=== PATIENT | male | born 1980 | race African-American/Black ===

== ENCOUNTER 2016-07-21 10:36 | Emergency (ER) | payer SELFPAY ==
[~2016-07-21] VITALS: Ht 185.4 cm; Wt 75.0 kg
[~2016-07-21 10:36] MED LIST: BACT800T5 PO; IBUP800T23 PO
[2016-07-21 10:37] VITALS: BP 131/65; PULSE 82; RESP 17; TEMP 97.8; O2SAT 98
--- NOTE | 2016-07-21 11:27 | PD ---
HPI Chief Complaint: GI Complaint Time Seen by Provider: 11:17 Travel History International Travel<30 days: No Contact w/Intl Traveler<30days: No Traveled to known affect area: No History of Present Illness HPI Healthy 36-year-old male with history of gastritis who here with complaint of nausea vomiting diarrhea and abdominal discomfort since waking this morning. Patient states that he ate [employer] last night before bed. This morning he woke up with a burning sensation within the epigastrium. Intractable nausea, vomiting and some diarrhea. Abdominal pain is mild. No hematemesis or hematochezia. PFSH Past Medical History Anxiety: No Depression: No Cancer: No Cardiovascular Problems: No Diminished Hearing: No Endocrine: No Gastrointestinal Disorders: Yes (GASTRITIS) GERD: Yes Genitourinary: No Hiatal Hernia: No Immune Disorder: No Musculoskeletal: No Neurologic: No Psychiatric: No Reproductive: No Respiratory: No Immunizations Current: No Ulcer: No Past Surgical History Pacemaker: No Other Surgery: No (LACERATION AND REPAIR TO UPPER LIP ) Social History Alcohol Use: No Tobacco Use: Yes Substance Use: Yes (marijuana) Allergies-Medications (Allergen,Severity, Reaction): Coded Allergies: No Known Allergies (Verified , 07/21/16) Reported Meds & Prescriptions Reported Meds & Active Scripts Active No Active Prescriptions or Reported Medications Review of Systems Except as stated in HPI: all other systems reviewed are Neg Physical Exam Narrative GENERAL: Well-appearing male vomiting SKIN: Warm and dry. HEAD: Normocephalic. EYES: No scleral icterus. No injection or drainage. ENT: No nasal bleeding or discharge. Mucous membranes pink and moist. NECK: Supple CARDIOVASCULAR: Regular rate and rhythm. RESPIRATORY: No accessory muscle use. GASTROINTESTINAL: Abdomen soft, minimal epigastric discomfort without rebound or guarding, nondistended. No CVA tenderness. MUSCULOSKELETAL: Normal gait NEUROLOGICAL: Awake and alert. Normal speech. PSYCHIATRIC: Appropriate mood and affect; insight and judgment normal. Data Data Last Documented VS Vital Signs Date Time Temp Pulse Resp B/P Pulse Ox O2 Delivery O2 Flow Rate FiO2 07/21/16 11:20 18 07/21/16 10:37 97.8 82 131/65 98 Orders Complete Blood Count With Diff (07/21/16 11:21) Comprehensive Metabolic Panel (07/21/16 11:21) Lipase (07/21/16 11:21) Iv Access Insert/Monitor (07/21/16 11:21) Ondansetron Inj (Zofran Inj) (07/21/16 11:30) Sodium Chloride 0.9% Flush (Ns Flush) (07/21/16 11:30) Diphenhydramine Inj (Benadryl Inj) (07/21/16 11:30) Metoclopramide Inj (Reglan Inj) (07/21/16 11:30) Sodium Chlor 0.9% 1000 Ml Inj (Ns 1000 M (07/21/16 12:15) Labs Laboratory Tests Test 07/21/16 11:35 White Blood Count 5.5 TH/MM3 Red Blood Count 4.63 MIL/MM3 Hemoglobin 14.5 GM/DL Hematocrit 43.2 % Mean Corpuscular Volume 93.3 FL Mean Corpuscular Hemoglobin 31.3 PG Mean Corpuscular Hemoglobin 33.5 % Concent Red Cell Distribution Width 12.9 % Platelet Count 147 TH/MM3 Mean Platelet Volume 10.9 FL Neutrophils (%) (Auto) 69.7 % Lymphocytes (%) (Auto) 20.8 % Monocytes (%) (Auto) 7.3 % Eosinophils (%) (Auto) 1.6 % Basophils (%) (Auto) 0.6 % Neutrophils # (Auto) 3.9 TH/MM3 Lymphocytes # (Auto) 1.2 TH/MM3 Monocytes # (Auto) 0.4 TH/MM3 Eosinophils # (Auto) 0.1 TH/MM3 Basophils # (Auto) 0.0 TH/MM3 CBC Comment DIFF FINAL Differential Comment Sodium Level 142 MEQ/L Potassium Level 4.2 MEQ/L Chloride Level 109 MEQ/L Carbon Dioxide Level 25.2 MEQ/L Anion Gap 8 MEQ/L Blood Urea Nitrogen 8 MG/DL Creatinine 1.03 MG/DL Estimat Glomerular Filtration 100 ML/MIN Rate Random Glucose 97 MG/DL Calcium Level 8.8 MG/DL Total Bilirubin 0.4 MG/DL Aspartate Amino Transf 32 U/L (AST/SGOT) Alanine Aminotransferase 31 U/L (ALT/SGPT) Alkaline Phosphatase 39 U/L Total Protein 7.6 GM/DL Albumin 4.0 GM/DL Lipase 94 U/L MDM Medical Decision Making Medical Screen Exam Complete: Yes Emergency Medical Condition: Yes Medical Record Reviewed: Yes Differential Diagnosis Healthy 36-year-old male with history of gastritis here with complaint of nausea vomiting diarrhea and burning epigastric discomfort since eating [facility] last night. Differential includes gastritis, pancreatitis, gastroenteritis, food poisoning, hepatobiliary pathology, peptic ulcer disease and less likely peritoneal pathology given her overall benign abdominal examination. Narrative Course IV established and blood obtained. Patient given Toradol, Zofran, Benadryl/ Reglan. CBC, CMP, lipase unremarkable. Patient felt improved and was able to tolerate oral challenge and will be discharged home. Diagnosis Primary Impression: Gastritis Qualified Code: K29.00 - Acute gastritis without hemorrhage, unspecified gastritis type Referrals: Primary Care Physician as needed Patient Instructions: Diet for Stomach Ulcers and Gastritis (ED), Gastritis (ED ), General Instructions Additional Instructions: Phenergan as needed for nausea, vomiting. Omeprazole as prescribed for antacid. Med/Other Pt SpecificInfo: Prescription(s) given Scripts Promethazine (Phenergan)25 Mg Tab25 Mg PO Q6H PRN (Nausea/Vomiting) #10 TAB Ref 0 Prov:Karol Quinn MD 07/21/16 Omeprazole 40 Mg Cap40 Mg PO DAILY #30 CAP Ref 0 Prov:Karol Quinn MD 07/21/16 Disposition: 01 DISCHARGE HOME Condition: Stable Karol Quinn MD Jul 21, 2016 11:26
[2016-07-21] MEDS ORDERED: diphenhydrAMINE HCL 50 MG/ML VIAL IVP ONE (11:30)
[2016-07-21] MEDS ORDERED: METOCLOPRAMIDE HCL 10 MG/2 ML VIAL IVP ONE (11:30)
[2016-07-21] MEDS ORDERED: SODIUM CHLORIDE 0.9% FLUSH 10 ML FLUSH IV FLUSH PRN (11:30)
[2016-07-21] MEDS ORDERED: ONDANSETRON HCL 4 MG/2 ML VIAL IVP ONE (11:30)
[2016-07-21 12:03] LABS: AUTOMATED NEUTROPHIL # 3.9 TH/MM3 (1.8-7.7); BASOPHIL % 0.6 % (0.0-2.0); EOSINOPHIL # 0.1 TH/MM3 (0-0.4); EOSINOPHIL % 1.6 % (0.0-4.0); HEMATOCRIT 43.2 % (39.0-51.0); HEMO FLAGS DIFF FINAL; LYMPH % 20.8 % (9.0-44.0); LYMPHOCYTE # 1.2 TH/MM3 (1.0-4.8); MEAN CELL VOLUME 93.3 FL (80.0-100.0); MEAN CORPUSCULAR HEMOGLOBIN 31.3 PG (27.0-34.0); MEAN CORPUSCULAR HGB CONC 33.5 % (32.0-36.0); MONO % 7.3 % (0.0-8.0); NEUT % 69.7 % (16.0-70.0); PLATELET COUNT 147 TH/MM3 (150-450); RED BLOOD COUNT 4.63 MIL/MM3 (4.50-5.90); RED CELL DISTRIBUTION WIDTH 12.9 % (11.6-17.2); WHITE BLOOD COUNT 5.5 TH/MM3 (4.0-11.0)
[2016-07-21] MEDS ORDERED: SODIUM CHLOR 0.9% 1000 ML INJ 1,000 ML IV ONE (12:15)
[2016-07-21 12:32] LABS: ALKALINE PHOSPHATASE 39 U/L (45-117); ALT (GPT) 31 U/L (12-78); ANION GAP 8 MEQ/L (5-15); AST (GOT) 32 U/L (15-37); BICARBONATE 25.2 MEQ/L (21.0-32.0); BLOOD UREA NITROGEN 8 MG/DL (7-18); CHLORIDE 109 MEQ/L (98-107); GLOMERULAR FILTRATION RATE 100 ML/MIN (>89); SODIUM (NA) 142 MEQ/L (136-145); TOTAL BILIRUBIN ADULT 0.4 MG/DL (0.2-1.0)
[2016-07-21 12:35] LABS: POTASSIUM 4.2 MEQ/L (3.5-5.1)
[2016-07-21] MEDS ORDERED: OMEP40CA2 PO (12:43)
[2016-07-21] MEDS ORDERED: PROM25TA5 PO (12:43)
[2016-07-21] MEDS ORDERED: ONDANSETRON HCL 4 MG/2 ML VIAL IV PUSH ONE (13:00)
[2016-07-21] MEDS ORDERED: PROCHLORPERAZINE INJ 10 MG/2 ML VIAL IVS ONE (13:00)
== END 2016-07-21 13:29 | disposition home or self-care (01) ==
LOC: NEPB 10:36
DX: K29.70 Gastritis, unspecified, without bleeding (principal); R19.7 Diarrhea, unspecified; R10.9 Unspecified abdominal pain; F12.90 Cannabis use, unspecified, uncomplicated; Z72.0 Tobacco use
CPT/HCPCS: 80053; 83690; 85025; 96361; 96374; 96375; 96376; 99284; J0780; J1200; J2405; J2765; J7030

== ENCOUNTER 2016-07-26 09:09 | Emergency (ER) | payer SELFPAY ==
[~2016-07-26] VITALS: Ht 185.4 cm; Wt 80.0 kg
[~2016-07-26 09:09] MED LIST changes: -BACT800T5 PO; -IBUP800T23 PO; +OMEP40CA2 PO; +PROM25TA5 PO
[2016-07-26 09:10] VITALS: BP 134/72; PULSE 104; RESP 20; TEMP 98.1; O2SAT 100
[2016-07-26] MEDS ORDERED: ZOFR4TAB3 SL (09:31)
[2016-07-26] MEDS ORDERED: PRIL20CA9 PO (09:32)
--- NOTE | 2016-07-26 09:35 | PD ---
HPI Chief Complaint: GI Complaint Time Seen by Provider: 09:28 Travel History International Travel<30 days: No Contact w/Intl Traveler<30days: No Traveled to known affect area: No History of Present Illness HPI 36-year-old male came to the emergency room with history of nausea and vomiting for past 4 days. Patient was in the emergency room about 3-4 days ago here with these complaints. He was given IV fluids and discharged home on prescription medication. Patient says that because of the vomiting he has been unable to keep the medications down. He was seen in [facility] in [place] for the same complain and was discharged home with a prescription for suppository antiemetics. Patient says that those were very expensive and he was unable to fill them all. He is back here because he feels weak and dehydrated. This morning when he got out of the bed he was very dizzy and almost fell. Currently he is awake and answering questions appropriately. He was slightly tachycardic in triage. Patient says he had something similar about 2 years ago and was diagnosed with gastritis. He had endoscopy done at that time. He was supposed to follow-up with GI specialist but since he does not have insurance he did not follow-up. He took the prescribed medications only for 10 days. He used to drink alcohol but he has given up drinking for many months now. [facility] Past Medical History Narrative Medical List of his past course, social family history as reviewed from the nursing note. Anxiety: No Depression: No Cancer: No Cardiovascular Problems: No Diminished Hearing: No Endocrine: No Gastrointestinal Disorders: Yes (GASTRITIS) GERD: Yes Genitourinary: No Hiatal Hernia: No Immune Disorder: No Musculoskeletal: No Neurologic: No Psychiatric: No Reproductive: No Respiratory: No Immunizations Current: No Ulcer: No Past Surgical History Surgical History: No Previous Surgery Pacemaker: No Other Surgery: No (LACERATION AND REPAIR TO UPPER LIP ) Social History Alcohol Use: Yes (SOCIALLY) Tobacco Use: Yes Substance Use: Yes (marijuana) Allergies-Medications (Allergen,Severity, Reaction): Coded Allergies: No Known Allergies (Verified , 07/26/16) Comments No known drug allergies. Reported Meds & Prescriptions Reported Meds & Active Scripts Active Pantoprazole (Pantoprazole Sodium) 40 Mg Tab 40 Mg PO DAILY Phenergan (Promethazine HCl) 25 Mg Tab 25 Mg PO Q6H PRN Reported Prilosec (Omeprazole) 20 Mg Cap 20 Mg PO DAILY Zofran Odt (Ondansetron Odt) 4 Mg Tab 4 Mg SL Q12HR PRN Narrative Medication List of his home medications reviewed from the nursing note. Review of Systems Except as stated in HPI: all other systems reviewed are Neg Physical Exam Narrative GENERAL: Awake, alert, mild distress SKIN: Warm and dry. HEAD: Atraumatic. Normocephalic. EYES: Pupils equal and round. No scleral icterus. No injection or drainage. ENT: No nasal bleeding or discharge. Mucous membranes pink and moist. NECK: Trachea midline. No JVD. CARDIOVASCULAR: Regular rate and rhythm. No murmur appreciated. RESPIRATORY: No accessory muscle use. Clear to auscultation. Breath sounds equal bilaterally. GASTROINTESTINAL: Abdomen soft, non-tender, nondistended. Hepatic and splenic margins not palpable. MUSCULOSKELETAL: No obvious deformities. No clubbing. No cyanosis. No edema. NEUROLOGICAL: Awake and alert. No obvious cranial nerve deficits. Motor grossly within normal limits. Normal speech. PSYCHIATRIC: Appropriate mood and affect; insight and judgment normal. Data Data Last Documented VS Vital Signs Date Time Temp Pulse Resp B/P Pulse Ox O2 Delivery O2 Flow Rate FiO2 07/26/16 09:10 98.1 104 20 134/72 100 Room Air Orders Complete Blood Count With Diff (07/26/16 09:47) Basic Metabolic Panel (Bmp) (07/26/16 09:47) Pantoprazole Inj (Protonix Inj) (07/26/16 10:00) Lipase (07/26/16 09:47) Sodium Chlor 0.9% 1000 Ml Inj (Ns 1000 M (07/26/16 10:00) Ondansetron Inj (Zofran Inj) (07/26/16 10:00) Labs Laboratory Tests Test 07/26/16 10:00 White Blood Count 6.6 TH/MM3 Red Blood Count 5.21 MIL/MM3 Hemoglobin 16.7 GM/DL Hematocrit 47.6 % Mean Corpuscular Volume 91.2 FL Mean Corpuscular Hemoglobin 32.0 PG Mean Corpuscular Hemoglobin 35.1 % Concent Red Cell Distribution Width 12.6 % Platelet Count 148 TH/MM3 Mean Platelet Volume 10.5 FL Neutrophils (%) (Auto) 66.6 % Lymphocytes (%) (Auto) 21.5 % Monocytes (%) (Auto) 10.9 % Eosinophils (%) (Auto) 0.4 % Basophils (%) (Auto) 0.6 % Neutrophils # (Auto) 4.4 TH/MM3 Lymphocytes # (Auto) 1.4 TH/MM3 Monocytes # (Auto) 0.7 TH/MM3 Eosinophils # (Auto) 0.0 TH/MM3 Basophils # (Auto) 0.0 TH/MM3 CBC Comment DIFF FINAL Differential Comment Sodium Level 135 MEQ/L Potassium Level 3.5 MEQ/L Chloride Level 98 MEQ/L Carbon Dioxide Level 27.6 MEQ/L Anion Gap 9 MEQ/L Blood Urea Nitrogen 13 MG/DL Creatinine 1.08 MG/DL Estimat Glomerular Filtration 95 ML/MIN Rate Random Glucose 84 MG/DL Calcium Level 8.8 MG/DL Lipase 82 U/L MDM Medical Decision Making Medical Screen Exam Complete: Yes Emergency Medical Condition: Yes Medical Record Reviewed: Yes Differential Diagnosis Acute gastritis, intractable vomiting Narrative Course 10:58 AM patient was given IV fluid bolus and IV Zofran. Given his last endoscopy report which showed severe gastritis I gave him IV Protonix as well. Blood test results of back and are relatively within normal limits. I'm comfortable discharging him home. I explained to him the importance of continuing with the PPI. Also he has to make an appointment to follow up with the talent acquisition manager. I'll give him the name of the on-call center agent. Patient has not vomited anymore since he has been here. Procedures EKG Prior to Arrival: No Diagnosis Primary Impression: Acute gastritis Qualified Code: K29.00 - Acute gastritis without hemorrhage, unspecified gastritis type Additional Impressions: Vomiting Qualified Code: R11.2 - Non-intractable vomiting with nausea, unspecified vomiting type Dehydration Referrals: Oracio Bustamante MD 1 week Additional Instructions: Please return to the ER if the condition worsens or any other new concerns. Otherwise follow-up with your primary care. If you do not have a primary care please find one for yourselves. Follow-up with the talent acquisition manager whose name and number been given to you. Take the medications as per the prescription direction. Stay away from any food that is highly acid content like lemon, lines, oranges, tomatoes, strawberries etc and products made out of them. Med/Other Pt SpecificInfo: Prescription(s) given Scripts Pantoprazole 40 Mg Tab40 Mg PO DAILY #30 TAB Ref 0 Prov:Miguel Tucker MD 07/26/16 Disposition: 01 DISCHARGE HOME Condition: Stable Miguel Tucker MD Jul 26, 2016 09:35 Miguel Tucker MD Jul 26, 2016 09:35
[2016-07-26] MEDS ORDERED: PANTOPRAZOLE SODIUM 40 MG VIAL IV PUSH ONE (10:00)
[2016-07-26] MEDS ORDERED: SODIUM CHLOR 0.9% 1000 ML INJ 1,000 ML IV ONE (10:00)
[2016-07-26] MEDS ORDERED: ONDANSETRON HCL 4 MG/2 ML VIAL IV PUSH ONE (10:00)
[2016-07-26 10:24] LABS: AUTOMATED NEUTROPHIL # 4.4 TH/MM3 (1.8-7.7); BASOPHIL % 0.6 % (0.0-2.0); EOSINOPHIL % 0.4 % (0.0-4.0); HEMATOCRIT 47.6 % (39.0-51.0); HEMO FLAGS DIFF FINAL; LYMPH % 21.5 % (9.0-44.0); LYMPHOCYTE # 1.4 TH/MM3 (1.0-4.8); MEAN CELL VOLUME 91.2 FL (80.0-100.0); MEAN CORPUSCULAR HGB CONC 35.1 % (32.0-36.0); MONO % 10.9 % (0.0-8.0); NEUT % 66.6 % (16.0-70.0); PLATELET COUNT 148 TH/MM3 (150-450); RED BLOOD COUNT 5.21 MIL/MM3 (4.50-5.90); RED CELL DISTRIBUTION WIDTH 12.6 % (11.6-17.2); WHITE BLOOD COUNT 6.6 TH/MM3 (4.0-11.0)
[2016-07-26 10:51] LABS: BICARBONATE 27.6 MEQ/L (21.0-32.0)
[2016-07-26 10:52] LABS: POTASSIUM 3.5 MEQ/L (3.5-5.1)
[2016-07-26] MEDS ORDERED: PANT40TA3 PO (11:01)
== END 2016-07-26 13:59 | disposition home or self-care (01) ==
LOC: NEPC 09:09
DX: K29.00 Acute gastritis without bleeding (principal); R11.2 Nausea with vomiting, unspecified; E86.0 Dehydration; R53.1 Weakness; R42 Dizziness and giddiness; R00.0 Tachycardia, unspecified; Z72.0 Tobacco use; Z87.19 Personal history of other diseases of the digestive system
CPT/HCPCS: 80048; 83690; 85025; 96361; 96374; 96375; 99284; C9113; J2405; J7030

== ENCOUNTER 2016-07-28 07:52 | Emergency (ER) | payer SELFPAY ==
[~2016-07-28 07:52] MED LIST changes: -OMEP40CA2 PO; +PANT40TA3 PO; +PRIL20CA9 PO; +ZOFR4TAB3 SL
[2016-07-28 07:55] VITALS: BP 129/80; PULSE 94; RESP 24; TEMP 97.9; O2SAT 99
[2016-07-28] MEDS ORDERED: SODIUM CHLOR 0.9% 1000 ML INJ 1,000 ML IV SCH (08:24)
[2016-07-28] MEDS ORDERED: ONDANSETRON HCL 4 MG/2 ML VIAL IVP ONE (08:30)
[2016-07-28] MEDS ORDERED: MORPHINE SULFATE 4 MG/ML INJ IV PUSH ONE (08:30)
[2016-07-28] MEDS ORDERED: LIDOCAINE VISCOUS 2% SOLN 15 ML UDC PO ONE (08:30)
[2016-07-28] MEDS ORDERED: ALUMINUM/MAGNESIUM/SIMETH 30 ML CUP PO ONE (08:30)
[2016-07-28] MEDS ORDERED: FAMOTIDINE 20 MG/2 ML VIAL IV PUSH ONE (08:30)
[2016-07-28] MEDS ORDERED: SODIUM CHLORIDE 0.9% FLUSH 10 ML FLUSH IV FLUSH PRN (08:30)
--- NOTE | 2016-07-28 08:30 | PD ---
HPI Chief Complaint: Abdominal Pain Time Seen by Provider: 08:14 Travel History International Travel<30 days: No Contact w/Intl Traveler<30days: No Traveled to known affect area: No History of Present Illness HPI The patient is a 36-year-old [place] male who presents emergency department for epigastric abdominal pain. The patient states his abdominal pain started approximately 5 days ago. The pain is located in epigastrium, nonradiating, burning, and assisted with nausea, vomiting, dry heaves. Patient notes decreased oral intake over the last several days secondary to persistent epigastric abdominal pain and difficulty sleeping secondary to the pain. The patient states he was evaluated in the emergency department at [facility] as well as [facility] and was prescribed medications. However, the patient states that the Zofran and Protonix are not alleviating his symptoms. The patient does have a history of similar symptoms in the past secondary to gastritis. The patient states he underwent endoscopy in 2015 at [facility] as well as [facility] and was diagnosed with gastritis. The patient denies any lower abdominal pain, diarrhea , or constipation. He denies any current hematemesis. The patient states his gastritis in the past was secondary to stress, occasional alcohol use, and ibuprofen use. However, the patient states she is not drinking alcohol in the last 3-4 weeks and is not currently taking nonsteroidal anti-inflammatories. PFSH Past Medical History Anxiety: No Depression: No Cancer: No Cardiovascular Problems: No Diminished Hearing: No Endocrine: No Gastrointestinal Disorders: Yes (GASTRITIS dx in 2015) GERD: Yes Genitourinary: No Hiatal Hernia: No Immune Disorder: No Musculoskeletal: No Neurologic: No Psychiatric: No Reproductive: No Respiratory: No Immunizations Current: No Ulcer: No Influenza Vaccination: No Past Surgical History Narrative Surgical Previous endoscopy 2 in 2014 Pacemaker: No Other Surgery: No (LACERATION AND REPAIR TO UPPER LIP ) Social History Alcohol Use: Yes (0ccas) Tobacco Use: Yes Substance Use: Yes (marijuana) Allergies-Medications (Allergen,Severity, Reaction): Coded Allergies: No Known Allergies (Verified , 07/28/16) Reported Meds & Prescriptions Reported Meds & Active Scripts Active Pantoprazole (Pantoprazole Sodium) 40 Mg Tab 40 Mg PO DAILY Phenergan (Promethazine HCl) 25 Mg Tab 25 Mg PO Q6H PRN Reported Zofran Odt (Ondansetron Odt) 4 Mg Tab 4 Mg SL Q12HR PRN Review of Systems Except as stated in HPI: all other systems reviewed are Neg General / Constitutional: No: Fever HENT: Positive: Lightheadedness Cardiovascular: No: Chest Pain or Discomfort Respiratory: No: Shortness of Breath Gastrointestinal: Positive: Nausea, Vomiting, Abdominal Pain, Indigestion, No : Diarrhea, Hematemesis, Constipation, Changes in Bowel Habits Musculoskeletal: No: Weakness Neurologic: No: Dizziness Physical Exam Narrative GENERAL: Awake, alert, 36-year-old [place] male who appears his stated age and is in moderate discomfort. SKIN: Focused skin assessment warm/dry. HEAD: Atraumatic. Normocephalic. EYES: Pupils equal and round. No scleral icterus. No injection or drainage. ENT: No nasal bleeding or discharge. Mucous membranes pink and moist. NECK: Trachea midline. No JVD. CARDIOVASCULAR: Regular rate and rhythm. No murmur appreciated. Heart rate in the 90s. RESPIRATORY: No accessory muscle use. Clear to auscultation. Breath sounds equal bilaterally. GASTROINTESTINAL: Abdomen soft, tender palpation epigastrium with mild guarding. No rebound tenderness. MUSCULOSKELETAL: No obvious deformities. No clubbing. No cyanosis. No edema. NEUROLOGICAL: Awake and alert. No obvious cranial nerve deficits. Motor grossly within normal limits. Normal speech. PSYCHIATRIC: Appropriate mood and affect; insight and judgment normal. Data Data Last Documented VS Vital Signs Date Time Temp Pulse Resp B/P Pulse Ox O2 Delivery O2 Flow Rate FiO2 07/28/16 08:18 07/28/16 07:55 97.9 94 24 99 Room Air Orders Complete Blood Count With Diff (07/28/16 08:24) Comprehensive Metabolic Panel (07/28/16 08:24) Lipase (07/28/16 08:24) Lactic Acid (07/28/16 08:24) Ct Abd/Pel W/O Iv Contrast (07/28/16 08:24) Iv Access Insert/Monitor (07/28/16 08:24) Ecg Monitoring (07/28/16 08:24) Oximetry (07/28/16 08:24) Morphine Inj (Morphine Inj) (07/28/16 08:30) Ondansetron Inj (Zofran Inj) (07/28/16 08:30) Sodium Chlor 0.9% 1000 Ml Inj (Ns 1000 M (07/28/16 08:24) Sodium Chloride 0.9% Flush (Ns Flush) (07/28/16 08:30) Famotidine Inj (Pepcid Inj) (07/28/16 08:30) Al-Mag Hy-Si 40-40-4 Mg/Ml Liq (Mag-Al P (07/28/16 08:30) Lidocaine 2% Viscous (Xylocaine 2% Visco (07/28/16 08:30) Labs Laboratory Tests Test 07/28/16 07/28/16 08:50 09:05 White Blood Count 6.4 TH/MM3 Red Blood Count 5.15 MIL/MM3 Hemoglobin 16.3 GM/DL Hematocrit 47.2 % Mean Corpuscular Volume 91.7 FL Mean Corpuscular Hemoglobin 31.8 PG Mean Corpuscular Hemoglobin 34.6 % Concent Red Cell Distribution Width 12.5 % Platelet Count 152 TH/MM3 Mean Platelet Volume 10.9 FL Neutrophils (%) (Auto) 59.4 % Lymphocytes (%) (Auto) 27.7 % Monocytes (%) (Auto) 11.7 % Eosinophils (%) (Auto) 0.7 % Basophils (%) (Auto) 0.5 % Neutrophils # (Auto) 3.8 TH/MM3 Lymphocytes # (Auto) 1.8 TH/MM3 Monocytes # (Auto) 0.8 TH/MM3 Eosinophils # (Auto) 0.0 TH/MM3 Basophils # (Auto) 0.0 TH/MM3 CBC Comment DIFF FINAL Differential Comment Sodium Level 137 MEQ/L Potassium Level 3.5 MEQ/L Chloride Level 97 MEQ/L Carbon Dioxide Level 29.9 MEQ/L Anion Gap 10 MEQ/L Blood Urea Nitrogen 9 MG/DL Creatinine 1.20 MG/DL Estimat Glomerular Filtration 84 ML/MIN Rate Random Glucose 94 MG/DL Calcium Level 9.4 MG/DL Total Bilirubin 1.5 MG/DL Aspartate Amino Transf 19 U/L (AST/SGOT) Alanine Aminotransferase 28 U/L (ALT/SGPT) Alkaline Phosphatase 37 U/L Total Protein 8.1 GM/DL Albumin 4.5 GM/DL Lipase 110 U/L Lactic Acid Level 1.4 mmol/L MDM Medical Decision Making Medical Screen Exam Complete: Yes Emergency Medical Condition: Yes Medical Record Reviewed: Yes Interpretation(s) CT the abdomen and pelvis reveals negative CT scan of the abdomen and pelvis. There is no free fluid or free air. Laboratory Tests Test 07/28/16 07/28/16 08:50 09:05 White Blood Count 6.4 TH/MM3 Red Blood Count 5.15 MIL/MM3 Hemoglobin 16.3 GM/DL Hematocrit 47.2 % Mean Corpuscular Volume 91.7 FL Mean Corpuscular Hemoglobin 31.8 PG Mean Corpuscular Hemoglobin 34.6 % Concent Red Cell Distribution Width 12.5 % Platelet Count 152 TH/MM3 Mean Platelet Volume 10.9 FL Neutrophils (%) (Auto) 59.4 % Lymphocytes (%) (Auto) 27.7 % Monocytes (%) (Auto) 11.7 % Eosinophils (%) (Auto) 0.7 % Basophils (%) (Auto) 0.5 % Neutrophils # (Auto) 3.8 TH/MM3 Lymphocytes # (Auto) 1.8 TH/MM3 Monocytes # (Auto) 0.8 TH/MM3 Eosinophils # (Auto) 0.0 TH/MM3 Basophils # (Auto) 0.0 TH/MM3 CBC Comment DIFF FINAL Differential Comment Sodium Level 137 MEQ/L Potassium Level 3.5 MEQ/L Chloride Level 97 MEQ/L Carbon Dioxide Level 29.9 MEQ/L Anion Gap 10 MEQ/L Blood Urea Nitrogen 9 MG/DL Creatinine 1.20 MG/DL Estimat Glomerular Filtration 84 ML/MIN Rate Random Glucose 94 MG/DL Calcium Level 9.4 MG/DL Total Bilirubin 1.5 MG/DL Aspartate Amino Transf 19 U/L (AST/SGOT) Alanine Aminotransferase 28 U/L (ALT/SGPT) Alkaline Phosphatase 37 U/L Total Protein 8.1 GM/DL Albumin 4.5 GM/DL Lipase 110 U/L Lactic Acid Level 1.4 mmol/L Differential Diagnosis Differential diagnosis includes gastritis, GERD, peptic ulcer disease, perforated viscus, gastric cancer, pancreatitis, biliary colic, Boerhaave syndrome. Narrative Course IV was established, labs were drawn and sent, and the patient was placed on cardiac telemetry monitoring and continuous pulse oximetry monitoring. The patient was administered GI cocktail, Pepcid, morphine, Zofran, and IV fluids. CT of the abdomen and pelvis without oral contrast was obtained. CT the abdomen and pelvis was negative. Laboratory evaluation is unremarkable except for mildly elevated bilirubin. I had a discussion with the patient regarding the use of marijuana. The patient states he smokes a lot of marijuana over and extended time, and also states that he takes approximately 5-6 hot showers daily which alleviated his symptoms. I had a discussion with the patient stating that his symptoms may be secondary to cannabis hyperemesis syndrome. He is advised to follow-up with a automobile dealer. The patient is requesting a medication for his insomnia, he has been unable to sleep the last 3 days. Therefore, patient will be prescribed a few pills of Ambien. Diagnosis Primary Impression: Cannabinoid hyperemesis syndrome Additional Impression: Insomnia Qualified Code: G47.00 - Insomnia, unspecified type Patient Instructions: General Instructions Additional Instructions: Stop smoking marijuana. Follow-up with gastroenterology. Continue taking proton pump inhibitor as previously directed. Med/Other Pt SpecificInfo: Prescription(s) given, No Change to Meds Scripts Zolpidem (Ambien)10 Mg Tab10 Mg PO HS PRN (INSOMNIA) #7 TAB Ref 0 Prov:Elieser Espitia MD 07/28/16 Disposition: 01 DISCHARGE HOME Condition: Stable Elieser Espitia MD Jul 28, 2016 08:30
--- NOTE | 2016-07-28 09:32 | RADRPT ---
EXAM DATE/TIME: 07/28/2016 08:31 [facility] COMPARISON: No previous studies available for comparison. INDICATIONS : Epigastric pain, nausea and vomiting since last night. ORAL CONTRAST: No oral contrast ingested. RADIATION DOSE: 9.96 CTDIvol (mGy) MEDICAL HISTORY : Gastritis. SURGICAL HISTORY : None. ENCOUNTER: Initial ACUITY: 1 day PAIN SCALE: 0/10 LOCATION: Bilateral upper quadrant TECHNIQUE: Volumetric scanning of the abdomen and pelvis was performed. Using automated exposure control and ad justment of the mA and/or kV according to patient size, radiation dose was kept as low as reasonably achievable to obtain optimal diagnostic quality images. FINDINGS: Lung bases are clear. The liver is free of focal defects. Spleen, pancreas, adrenals and kidneys ar e unremarkable. Region of the cecum and terminal ileum appear normal. There is no free fluid or free air. Pelvic contents are unremarkable. CONCLUSION: Negative CT scan of the abdomen and pelvis. This examination is severely limited by lack of oral and intravenous contrast. Jose Luis Pandya MD FACR on July 28, 2016 at 9:27 Board Certified Radiologist. This report was verified electronically.
[2016-07-28 09:33] LABS: AUTOMATED NEUTROPHIL # 3.8 TH/MM3 (1.8-7.7); BASOPHIL % 0.5 % (0.0-2.0); EOSINOPHIL % 0.7 % (0.0-4.0); HEMATOCRIT 47.2 % (39.0-51.0); HEMO FLAGS DIFF FINAL; LYMPH % 27.7 % (9.0-44.0); LYMPHOCYTE # 1.8 TH/MM3 (1.0-4.8); MEAN CELL VOLUME 91.7 FL (80.0-100.0); MEAN CORPUSCULAR HEMOGLOBIN 31.8 PG (27.0-34.0); MEAN CORPUSCULAR HGB CONC 34.6 % (32.0-36.0); MONO % 11.7 % (0.0-8.0); NEUT % 59.4 % (16.0-70.0); PLATELET COUNT 152 TH/MM3 (150-450); RED BLOOD COUNT 5.15 MIL/MM3 (4.50-5.90); RED CELL DISTRIBUTION WIDTH 12.5 % (11.6-17.2); WHITE BLOOD COUNT 6.4 TH/MM3 (4.0-11.0)
[2016-07-28 09:38] LABS: ANION GAP 10 MEQ/L (5-15); AST (GOT) 19 U/L (15-37); BICARBONATE 29.9 MEQ/L (21.0-32.0); BLOOD UREA NITROGEN 9 MG/DL (7-18); CHLORIDE 97 MEQ/L (98-107); GLOMERULAR FILTRATION RATE 84 ML/MIN (>89); POTASSIUM 3.5 MEQ/L (3.5-5.1); SODIUM (NA) 137 MEQ/L (136-145)
[2016-07-28 09:42] LABS: ALKALINE PHOSPHATASE 37 U/L (45-117); ALT (GPT) 28 U/L (12-78); TOTAL BILIRUBIN ADULT 1.5 MG/DL (0.2-1.0)
[2016-07-28] MEDS ORDERED: AMBI10TA PO (09:58)
[2016-07-28 10:17] VITALS: BP 121/79; PULSE 70; RESP 16; O2SAT 99
== END 2016-07-28 10:18 | disposition home or self-care (01) ==
LOC: NEPE 07:52
DX: F12.988 Cannabis use, unspecified with other cannabis-induced disorder (principal); G47.00 Insomnia, unspecified
CPT/HCPCS: 74176; 80053; 83605; 83690; 85025; 96374; 96375; 99284; J2270; J2405; J7030